=== PATIENT | female | born 1965 | race American Indian/Alaskan Native ===

== ENCOUNTER 2019-02-09 23:51 | Emergency (ER) | payer OTHER ==
[2019-02-10] MEDS ORDERED: ANTIVERT PO ONE (02:27)
[2019-02-10] MEDS ORDERED: ZOFRAN ODT PO ONE (02:27)
[2019-02-10 02:39] LABS: BUN/Creatinine Ratio 14; Blood Urea Nitrogen 15 mg/dL (7-17); Calcium 9.3 mg/dL (8.4-10.2); Hemolysis Index 8
[2019-02-10 02:51] LABS: Basophils % (Auto) 0.3 % (0.0-1.8); Eosinophils # (Auto) 0.1 K/mm3 (0.0-0.4); Hematocrit 40.4 % (30.3-42.9); Hemoglobin 12.8 gm/dl (10.1-14.3); Lymphocytes # (Auto) 1.7 K/mm3 (1.2-5.4); Lymphocytes % (Auto) 38.5 % (13.4-35.0); Mean Corpuscular HGB Conc 32 % (30-34); Mean Corpuscular Volume 70 fl (79-97); Monocytes # (Auto) 0.4 K/mm3 (0.0-0.8); Monocytes % (Auto) 8.6 % (0.0-7.3); Platelet Count 230 K/mm3 (140-440); Red Blood Count 5.73 M/mm3 (3.65-5.03); Red Cell Distribution Width 16.3 % (13.2-15.2)
--- NOTE | 2019-02-10 04:31 | Emergency Department Report ---
ED Dizziness HPI - General Chief Complaint: Dizziness Stated Complaint: HIGH BP Time Seen by Provider: 02/10/19 02:19 Source: patient, EMS Mode of arrival: Stretcher Limitations: No Limitations - History of Present Illness Initial Comments: 53-year-old female with a past medical history reveals CVA in 2017, hypertension, and vertigo presents complaining of vertigo since yesterday. Patient describes a spinning sensation with associated nausea. No vomiting reported. Patient states she had a stroke in 2017 and vertigo was her only presenting symptom. Since that stroke she has had intermittent vertigo when she is "tired". Patient tried to nap after initial vertigo yesterday but then woke up later in the evening with worsening vertigo. She denies any focal deficits or blurred vision. Her left ear feels like there is water in it. Patient's v ertigo symptoms are intermittent, worse with head movement, and improved when remaining still. No pain reported. She has never taken any medication for vertigo in the past. Patient also states that her blood pressure was high at 204/111 despite taking her medications. She has been complaining with her lisinopril/hydrochlorothiazide 20/25 mg and Norvasc 5 mg daily. - Related Data Previous Rx's Medication Instructions Recorded Last Taken Type Meclizine [Antivert] 25 mg PO TID PRN #30 tablet 02/10/19 Unknown Rx Ondansetron [Zofran Odt] 4 mg PO Q8HR PRN #20 tab.rapdis 02/10/19 Unknown Rx Allergies Allergy/AdvReac Type Severity Reaction Status Date / Time Tetracyclines Allergy Anaphylaxis Verified 02/10/19 00:21 ED Review of Systems ROS: Stated complaint: HIGH BP Other details as noted in HPI Comment: All other systems reviewed and negative ED Past Medical Hx - Past Medical History Previous Medical History?: Yes Hx Hypertension: Yes Hx CVA: Yes (2016) Additional medical history: vertigo - Surgical History Past Surgical History?: Yes Additional Surgical History: tubal ligation 1989 - Social History Smoking Status: Never Smoker Substance Use Type: None - Medications Home Medications: Home Medications Medication Instructions Recorded Confirmed Last Taken Type Meclizine [Antivert] 25 mg PO TID PRN #30 tablet 02/10/19 Unknown Rx Ondansetron [Zofran Odt] 4 mg PO Q8HR PRN #20 tab.rapdis 02/10/19 Unknown Rx ED Physical Exam - General Limitations: No Limitations - Other Other exam information: General: No limitations, patient is alert in no acute distress Head exam: Atraumatic, normocephalic Eyes exam: Normal appearance, pupils equal reactive to light, extraocular movements intact, no nystagmus ENT: Moist mucous membrane, normal oropharynx, no otitis media or fluid noted in the eardrum. Neck exam: Normal inspection, full range of motion, no meningismus nontender Respiratory exam: Clear to auscultation bilateral, no wheezes, rales, crackles Cardiovascular: Normal rate and rhythm, normal heart sounds Abdomen: Soft, nondistended, and nontender, with normal bowel sounds, no rebound, or guarding Extremity: Full range of motion normal inspection no deformity Back: Normal Inspection, full range of motion, no tenderness Neurologic: Alert, oriented x3, cranial nerves intact, no motor or sensory deficit, xugvxr-ufht-rlrwmy function intact Psychiatric: normal affect, normal mood Skin: Warm, dry, intact ED Course Vital Signs 02/10/19 02/10/19 02/10/19 00:10 00:52 03:17 Temperature 98.3 F Pulse Rate 73 70 Respiratory 17 19 19 Rate Blood Pressure 162/87 146/92 [Left] O2 Sat by Pulse 98 98 98 Oximetry ED Medical Decision Making - Lab Data Result diagrams: 02/10/19 02:03 02/10/19 02:01 Lab Results 02/10/19 02/10/19 Range/Units 02:01 02:03 WBC 4.5 (4.5-11.0) K/mm3 RBC 5.73 H (3.65-5.03) M/mm3 Hgb 12.8 (10.1-14.3) gm/dl Hct 40.4 (30.3-42.9) % MCV 70 L (79-97) fl MCH 22 L (28-32) pg MCHC 32 (30-34) % RDW 16.3 H (13.2-15.2) % Plt Count 230 (140-440) K/mm3 Lymph % (Auto) 38.5 H (13.4-35.0) % Dunn % (Auto) 8.6 H (0.0-7.3) % Eos % (Auto) 3.0 (0.0-4.3) % Baso % (Auto) 0.3 (0.0-1.8) % Lymph # 1.7 (1.2-5.4) K/mm3 Dunn # 0.4 (0.0-0.8) K/mm3 Eos # 0.1 (0.0-0.4) K/mm3 Baso # 0.0 (0.0-0.1) K/mm3 Seg Neutrophils % 49.6 (40.0-70.0) % Seg Neutrophils # 2.3 (1.8-7.7) K/mm3 Sodium 138 (137-145) mmol/L Potassium 4.0 (3.6-5.0) mmol/L Chloride 96.9 L (98-107) mmol/L Carbon Dioxide 29 (22-30) mmol/L Anion Gap 16 mmol/L BUN 15 (7-17) mg/dL Creatinine 1.1 (0.7-1.2) mg/dL Estimated GFR > 60 ml/min BUN/Creatinine Ratio 14 % Glucose 176 H (65-100) mg/dL Calcium 9.3 (8.4-10.2) mg/dL Magnesium 2.00 (1.7-2.3) mg/dL - Medical Decision Making Patient treated with meclizine and Zofran with improvement in symptoms. Blood pressure remained in acceptable range without intervention. Patient be discharg ed to follow-up - Differential Diagnosis vertigo, CVA, electrolyte abnormality Critical Care Time: No Critical care attestation.: If time is entered above; I have spent that time in minutes in the direct care of this critically ill patient, excluding procedure time. ED Disposition Clinical Impression: Vertigo Disposition: DC-01 TO HOME OR SELFCARE Is pt being admited?: No Does the pt Need Aspirin: No Condition: Stable Instructions: Vertigo (ED) Additional Instructions: Take the medication as prescribed. Follow up with your doctor or the clinic/doctor provided. Return if symptoms worsen as indicated by your disch arge instructions Prescriptions: Meclizine [Antivert] 25 mg PO TID PRN #30 tablet PRN Reason: Vertigo Ondansetron [Zofran Odt] 4 mg PO Q8HR PRN #20 tab.rapdis PRN Reason: Nausea And Vomiting Referrals: [facility] MD SURJIT [Primary Care Provider] - 3-5 Days TRUNG WEBB MD [Staff Physician] - 3-5 Days (ENT) Time of Disposition: 04:34
[2019-02-10 05:42] VITALS: BP 142/86
== END 2019-02-10 05:41 | disposition home or self-care (01) ==
LOC: ED 23:51
DX: R42 Dizziness and giddiness (principal); R11.0 Nausea; I10 Essential (primary) hypertension; Z98.51 Tubal ligation status; Z86.73 Personal history of transient ischemic attack (TIA), and cerebral infarction without residual deficits; Z88.1 Allergy status to other antibiotic agents
CPT/HCPCS: 36415; 80048; 83735; 85025; Q0162

== ENCOUNTER 2020-03-30 17:59 | Emergency (ER) | payer OTHER ==
[2020-03-30] MEDS ORDERED: ACETAMINOPHEN 500 MG TAB PO ONE (18:46)
--- NOTE | 2020-03-30 18:47 | Event Note ---
ED Screening Note Date of service: 03/30/20 Time: 18:45 ED Screening Note: 55-year-old female presents to the emergency room for shortness of breath cough low-grade fever body aches mild nausea no vomiting. Decreased appetite. This initial assessment/diagnostic orders/clinical plan/treatment(s) is/are subject to change based on patients health status, clinical progression and re- assessment by fellow clinical providers in the ED. Further treatment and workup at subsequent clinical providers discretion. Patient/guardian urged not to elope from the ED as their condition may be serious if not clinically assessed and managed. Initial orders include:
--- NOTE | 2020-03-30 19:27 | XRay Report ---
CHEST 2 VIEWS INDICATION / CLINICAL INFORMATION: sob,cough and rales. COMPARISON: None available. FINDINGS: SUPPORT DEVICES: None. HEART / MEDIASTINUM: No significant abnormality. LUNGS / PLEURA: There is hazy parenchymal opacification in the right lobe. There is no pleural effusi on. No pneumothorax. ADDITIONAL FINDINGS: No significant additional findings. IMPRESSION: 1. Hazy right upper lobe parenchymal opacification concerning for developing pneumonia. Signer Name: Zoltan Villalta MD Signed: 03/30/2020 7:22 PM Workstation Name: [id number]
[2020-03-30 19:34] LABS: Basophils % (Auto) 0.3 % (0.0-1.8); Eosinophils % (Auto) 0.6 % (0.0-4.3); Hematocrit 40.3 % (30.3-42.9); Hemoglobin 12.6 gm/dl (10.1-14.3); Lymphocytes # (Auto) 1.4 K/mm3 (1.2-5.4); Lymphocytes % (Auto) 19.9 % (13.4-35.0); Mean Corpuscular HGB Conc 31 % (30-34); Mean Corpuscular Volume 71 fl (79-97); Monocytes # (Auto) 0.7 K/mm3 (0.0-0.8); Monocytes % (Auto) 10.5 % (0.0-7.3); Platelet Count 265 K/mm3 (140-440); Red Blood Count 5.71 M/mm3 (3.65-5.03); Red Cell Distribution Width 16.2 % (13.2-15.2)
[2020-03-30] MEDS ORDERED: LIDOCAINE-MPF (1%) 10 MG/1 ML VIAL 5 ML INFILTRATI ONE (19:56)
[2020-03-30] MEDS ORDERED: AZITHROMYCIN 250 MG TAB PO ONE (19:56)
[2020-03-30] MEDS ORDERED: dexAMETHasone 20 MG/5 ML VIAL IM ONE (19:56)
[2020-03-30 20:01] LABS: Albumin 4.2 g/dL (3.9-5); Calcium 9.1 mg/dL (8.4-10.2)
--- NOTE | 2020-03-30 20:54 | Emergency Department Report ---
- General Chief Complaint: Upper Respiratory Infection Stated Complaint: F/CHILLS/BODYACHE/NASTY TASTE/WEAKNESS Source: patient Mode of arrival: Ambulatory Limitations: No Limitations - History of Present Illness Initial Comments: Patient is a 55-year-old -Portuguese female with a history of hypertension, qsi-ujqrtuw-zfjkdcccz diabetes, CVA and vertigo who presents to the ED with complaint of acute onset persistent nasal and sinus congestion, frontal sinus pressure and headache, persistent dry cough with pleuritic chest wall pain for the last 6 days. Patient also complains of intermittent fever and chills stating that the fever has been low-grade up to 101 F at some point. Patient also states that she has been taking eave-bcd-nvjdqcv antipyretics Tylenol as needed for fever. Patient states that in the last 2 days her fevers been persistent and higher with worsening symptoms. Patient states that no one else at home has had similar symptoms. Patient denies diarrhea, sore throat, nausea, vomiting, chest pain, shortness of breath, abdominal pain, dysuria, urinary frequency and urgency, change in vision, syncope or back pain and vaginal bleeding. MD Complaint: cough, rhinorrhea, nasal congestion, sinus pain -: Sudden, days(s) (6) Severity: severe Severity scale (0 -10): 7 Quality: dull, aching Consistency: constant Improves With: nothing Worsens With: nothing Associated Symptoms: denies other symptoms, fever, chills, myalgias, headache, rhinorrhea, nasal congestion, cough. denies: diaphoresis, sore throat, stiff neck, chest pain, shortness of breath, abdominal pain, nausea, vomiting, diarrhea, dysuria, rash, right sweats, weight loss, hoarseness, ear pain Treatments Prior to Arrival: Acetaminophen - Related Data Previous Rx's Medication Instructions Recorded Last Taken Type Meclizine [Antivert] 25 mg PO TID PRN #30 tablet 02/10/19 Unknown Rx Ondansetron [Zofran Odt] 4 mg PO Q8HR PRN #20 tab.rapdis 02/10/19 Unknown Rx Benzonatate [Tessalon Perles] 100 mg PO Q8HR #30 capsule 03/30/20 Unknown Rx Cetirizine HCl [ZyrTEC 10mg cap] 10 mg PO DAILY #30 capsule 03/30/20 Unknown Rx Ibuprofen [Motrin] 600 mg PO Q8H PRN #24 tablet 03/30/20 Unknown Rx levoFLOXacin [Levaquin] 750 mg PO QDAY #7 tablet 03/30/20 Unknown Rx methylPREDNISolone [Medrol 4MG 4 mg PO DAILY #21 tab.ds.pk 03/30/20 Unknown Rx DOSEPAK (21 tabs)] Allergies Allergy/AdvReac Type Severity Reaction Status Date / Time Tetracyclines Allergy Anaphylaxis Verified 02/10/19 00:21 ED Review of Systems ROS: Stated complaint: F/CHILLS/BODYACHE/NASTY TASTE/WEAKNESS Other details as noted in HPI Constitutional: chills, fever, malaise Eyes: denies: eye pain, eye discharge, vision change ENT: congestion. denies: ear pain, throat pain Respiratory: cough. denies: shortness of breath, wheezing Cardiovascular: denies: chest pain, palpitations Endocrine: no symptoms reported Gastrointestinal: denies: abdominal pain, nausea, diarrhea Genitourinary: denies: urgency, dysuria, discharge Musculoskeletal: arthralgia, myalgia. denies: back pain, joint swelling Skin: denies: rash, lesions Neurological: headache. denies: weakness, paresthesias Psychiatric: denies: anxiety, depression Hematological/Lymphatic: denies: easy bleeding, easy bruising ED Past Medical Hx - Past Medical History Previous Medical History?: Yes Hx Hypertension: Yes Hx CVA: Yes (2017) Hx Diabetes: Yes Additional medical history: vertigo - Surgical History Past Surgical History?: Yes Additional Surgical History: tubal ligation 1989 - Social History Smoking Status: Never Smoker Substance Use Type: Alcohol - Medications Home Medications: Home Medications Medication Instructions Recorded Confirmed Last Taken Type Meclizine [Antivert] 25 mg PO TID PRN #30 tablet 02/10/19 Unknown Rx Ondansetron [Zofran Odt] 4 mg PO Q8HR PRN #20 tab.rapdis 02/10/19 Unknown Rx Benzonatate [Tessalon Perles] 100 mg PO Q8HR #30 capsule 03/30/20 Unknown Rx Cetirizine HCl [ZyrTEC 10mg cap] 10 mg PO DAILY #30 capsule 03/30/20 Unknown Rx Ibuprofen [Motrin] 600 mg PO Q8H PRN #24 tablet 03/30/20 Unknown Rx levoFLOXacin [Levaquin] 750 mg PO QDAY #7 tablet 03/30/20 Unknown Rx methylPREDNISolone [Medrol 4MG 4 mg PO DAILY #21 tab.ds.pk 03/30/20 Unknown Rx DOSEPAK (21 tabs)] ED Physical Exam - General Limitations: No Limitations General appearance: alert, in no apparent distress - Head Head exam: Present: atraumatic, normocephalic, normal inspection - Eye Eye exam: Present: normal appearance, PERRL, EOMI Pupils: Present: normal accommodation - ENT ENT exam: Present: normal orophraynx, mucous membranes moist, TM's normal bilaterally, normal external ear exam, other (Grossly congested nasal passages; palpable frontal and maxillary sinus tenderness) - Neck Neck exam: Present: normal inspection, full ROM - Respiratory Respiratory exam: Present: normal lung sounds bilaterally. Absent: respiratory distress, wheezes, rales, rhonchi, chest wall tenderness, decreased breath sounds, prolonged expiratory - Cardiovascular Cardiovascular Exam: Present: normal rhythm, tachycardia, normal heart sounds. Absent: systolic murmur, diastolic murmur, rubs, gallop - GI/Abdominal GI/Abdominal exam: Present: soft, normal bowel sounds. Absent: tenderness, guarding, rebound, hyperactive bowel sounds, hypoactive bowel sounds, organomegaly - Rectal Rectal exam: Present: deferred - Extremities Exam Extremities exam: Present: normal inspection, full ROM, normal capillary refill - Back Exam Back exam: Present: normal inspection, full ROM. Absent: tenderness, muscle spasm, paraspinal tenderness, vertebral tenderness - Neurological Exam Neurological exam: Present: alert, oriented X3, CN II-XII intact, normal gait, reflexes normal - Psychiatric Psychiatric exam: Present: normal affect, normal mood - Skin Skin exam: Present: warm, dry, intact, normal color. Absent: rash ED Course Vital Signs 03/30/20 03/30/20 18:10 21:09 Temperature 100.1 F H 100.3 F H Pulse Rate 110 H 98 H Respiratory 20 16 Rate Blood Pressure 188/90 Blood Pressure 138/94 [Left] O2 Sat by Pulse 98 95 Oximetry ED Medical Decision Making - Lab Data Result diagrams: 03/30/20 19:03 03/30/20 19:03 - Radiology Data Radiology results: report reviewed, image reviewed Findings [facility] [address] [place] [address] XRay Report Signed Patient: ROHIT LAFLEUR MR#: [id number] : 1965 Acct:[id number] Age/Sex: 55 / F ADM Date: 03/30/20 Loc: ED Attending Dr: Ordering Physician: YESENIA AGUIRRE Date of Service: 03/30/20 Procedure(s): XR chest routine 2V Accession Number(s): [id number] cc: YESENIA AGUIRRE Fluoro Time In Minutes: CHEST 2 VIEWS INDICATION / CLINICAL INFORMATION: sob,cough and rales. COMPARISON: None available. FINDINGS: SUPPORT DEVICES: None. HEART / MEDIASTINUM: No significant abnormality. LUNGS / PLEURA: There is hazy parenchymal opacification in the right lobe. There is no pleural effusion. No pneumothorax. ADDITIONAL FINDINGS: No significant additional findings. IMPRESSION: 1. Hazy right upper lobe parenchymal opacification concerning for developing pneumonia. Signer Name: Zoltan Villalta MD Signed: 03/30/2020 7:22 PM Workstation Name: [id number] Transcribed By: ELDER Dictated By: Zoltan Villalta MD Electronically Authenticated By: Zoltan Villalta MD Signed Date/Time: 03/30/201921 DD/ 21 TD/TT: - Medical Decision Making This is a 55-year-old -Portuguese female with a history of hypertension, tmk-hgkwtrw-vupohmkcg diabetes, CVA and vertigo who presents to the ED with com plaint of acute onset persistent nasal and sinus congestion, frontal sinus pressure and headache, persistent dry cough with pleuritic chest wall pain for the last 6 days. Patient also complains of intermittent fever and chills stating that the fever has been low-grade up to 101 F at some point. Patient also states that she has been taking fxau-mhz-nnrodck antipyretics Tylenol as needed for fever. Patient states that in the last 2 days her fevers been persistent and higher with worsening symptoms. Patient states that no one else at home has had similar symptoms. In the ED, patient is alert and oriented x3 and is not in distress but febrile and tachycardic in triage. Patient was treated for fever in the ED. lab test results were reviewed and are all nonactionable. Chest x-ray shows a hazy right upper lobe parenchymal opacification concerning for developing pneumonia. Patient was therefore treated in the ED with Rocephin 1 g intramuscular injection and azithromycin 500 mg p.o. x1. Other differential diagnoses were considered during this visit including pneumonia, sinusitis, URI, strep pharyngitis, COVID-19, coronary artery disease or PE. On reevaluation, patient fever resolved with medication as well as tachycardia. Patient was discharged home on antibiotics, antipyretic s, Medrol Dosepak, Tessalon Perles and Zyrtec. Patient was advised to follow-up with her primary care physician in 5 to 7 days for reevaluation. Patient was advised to return to the ED immediately if symptoms get worse. - Differential Diagnosis Pneumonia; Covid19; Sinusitis; URI; Strep pharyngitis; ACS; PE Critical care attestation.: If time is entered above; I have spent that time in minutes in the direct care of this critically ill patient, excluding procedure time. ED Disposition Clinical Impression: Acute upper respiratory infection, Acute non-recurrent maxillary sinusitis, Fever and chills Community acquired pneumonia Qualifiers: Laterality: right Lung location: upper lobe of lung Qualified Code(s): J18.9 - Pneumonia, unspecified organism Disposition: DC- TO HOME OR SELFCARE Is pt being admited?: No Does the pt Need Aspirin: No Condition: Stable Instructions: Upper Respiratory Infection (ED), Acute Bacterial Rhinosinusitis (ED), Community-acquired Pneumonia (ED), Bacterial Pneumonia (ED) Additional Instructions: Take medication with food, drink plenty of fluids and follow-up with your primary care physician in 7 to 10 days for reevaluation. Return to the ED immediately if symptoms get worse. Prescriptions: levoFLOXacin [Levaquin] 750 mg PO QDAY #7 tablet methylPREDNISolone [Medrol 4MG DOSEPAK (21 tabs)] 4 mg PO DAILY #21 tab.ds.pk Ibuprofen [Motrin] 600 mg PO Q8H PRN #24 tablet PRN Reason: Pain Benzonatate [Tessalon Perles] 100 mg PO Q8HR #30 capsule Cetirizine HCl [ZyrTEC 10mg cap] 10 mg PO DAILY #30 capsule Referrals: MADDISON CHAUDHARI MD [Staff Physician] - 3-5 Days Time of Disposition: 20:52 Print Language: MALAY
[2020-03-30 21:10] VITALS: BP 138/94
[2020-03-30] MEDS ORDERED: IBUPROFEN 600 MG TAB PO ONE ×2 (21:10→21:13)
== END 2020-03-30 21:20 | disposition home or self-care (01) ==
LOC: ED 17:59
DX: J01.00 Acute maxillary sinusitis, unspecified (principal); I10 Essential (primary) hypertension; E11.9 Type 2 diabetes mellitus without complications
CPT/HCPCS: 36415; 71046; 80053; 85025; 96372; 99283; J0696; J1100

== ENCOUNTER 2020-10-03 15:43 | Emergency (ER) | payer OTHER ==
[2020-10-03 17:30] VITALS: BP 156/106
--- NOTE | 2020-10-03 17:30 | Event Note ---
ED Screening Note Date of service: 10/03/20 Time: 17:29 ED Screening Note: Patient complains of loss of taste/smell, body aches, weakness, and intermittent\substernal chest pain x4 days States exposed to Covid at work History of diabetes Patient is diaphoretic in triage, however no fever noted This initial assessment/diagnostic orders/clinical plan/treatment(s) is/are subject to change based on patients health status, clinical progression and re- assessment by fellow clinical providers in the ED. Further treatment and workup at subsequent clinical providers discretion. Patient/guardian urged not to elope from the ED as their condition may be serious if not clinically assessed and managed. Initial orders include: Labs Chest x-ray POC glucose
[2020-10-03 17:56] LABS: Basophils % (Auto) 0.4 % (0.0-1.8); Eosinophils % (Auto) 0.1 % (0.0-4.3); Hematocrit 46.9 % (30.3-42.9); Lymphocytes # (Auto) 1.1 K/mm3 (1.2-5.4); Lymphocytes % (Auto) 23.1 % (13.4-35.0); Mean Corpuscular HGB Conc 32 % (30-34); Mean Corpuscular Volume 71 fl (79-97); Monocytes # (Auto) 0.5 K/mm3 (0.0-0.8); Monocytes % (Auto) 10.9 % (0.0-7.3); Platelet Count 194 K/mm3 (140-440); Red Blood Count 6.62 M/mm3 (3.65-5.03); Red Cell Distribution Width 16.4 % (13.2-15.2)
[2020-10-03 18:17] LABS: Alanine Aminotransferase 52 units/L (7-56); Albumin 3.6 g/dL (3.9-5); BUN/Creatinine Ratio 9; Blood Urea Nitrogen 11 mg/dL (7-17); Calcium 8.8 mg/dL (8.4-10.2); Hemolysis Index 9
--- NOTE | 2020-10-03 18:44 | XRay Report ---
CHEST 2 VIEWS INDICATION: chest pain. COMPARISON: Chest x-ray from 03/30/2020 FINDINGS: SUPPORT DEVICES: None. HEART: Within normal limits. LUNGS/PLEURA: Improved aeration in the lungs with less subtle patchy airspace disease noted, particul simran in the right lung. No pneumothorax. ADDITIONAL FINDINGS: None. IMPRESSION: 1. Improved exam. Signer Name: Zaire Arreaga MD Signed: 10/03/2020 6:40 PM Workstation Name: [id number]
--- NOTE | 2020-10-03 23:47 | Emergency Department Report ---
ED General Adult HPI - General Chief complaint: Fever Stated complaint: NO SMELL/TASTE/BODY ACHES/CHILLS PUI?: Yes Time Seen by Provider: 10/03/20 17:28 Source: patient, RN notes reviewed, old records reviewed Mode of arrival: Ambulatory Limitations: No Limitations - History of Present Illness Initial comments: The patient was evaluated in the emergency department for symptoms described in the history of present illness. He/she was evaluated in the context of the global COVID-19 pandemic, which necessitated consideration that the patient might be at risk for infection with the virus that causes COVID-19. Institutional protocols and algorithms that pertain to the evaluation of patients at risk for COVID-19 are in a state of rapid change based on information released by regulatory bodies including the CDC and federal and state organizations. These policies and algorithms were followed during the patient's care in the emergency department. Please note that these policies, procedures and recommendations changed on a rapid basis. During the entire history and physical examination, I had on complete personal protective equipment. The patient is a 55-year-old female with a history of hypertension, who presents to the ER with a complaint of body aches, myalgias, malaise, fatigue, dry cough, loss of taste and loss of smell. She believes she was exposed to COVID-19 last week at work. Today is day 5/6 of symptoms. She denies severe headache, but has a mild headache, no irritative or obstructive urinary symptoms, no abdominal pain, and a few episodes of nonbloody, nonbilious painless diarrhea. Symptoms constant. They worsen with physical exertion and decreased with rest. Positive relief with [id number] Tylenol at home. -: Gradual, days(s) Location: back, left, right, upper extremity, lower extremity Quality: aching Improves with: medication, rest Worsens with: movement - Related Data Previous Rx's Medication Instructions Recorded Last Taken Type Meclizine [Antivert] 25 mg PO TID PRN #30 tablet 02/10/19 Unknown Rx Ondansetron [Zofran Odt] 4 mg PO Q8HR PRN #20 tab.rapdis 02/10/19 Unknown Rx Benzonatate [Tessalon Perles] 100 mg PO Q8HR #30 capsule 03/30/20 Unknown Rx Cetirizine HCl [ZyrTEC 10mg cap] 10 mg PO DAILY #30 capsule 03/30/20 Unknown Rx Ibuprofen [Motrin] 600 mg PO Q8H PRN #24 tablet 03/30/20 Unknown Rx Acetaminophen [Non-Aspirin Extra 500 mg PO Q6HR PRN #30 tablet 10/04/20 Unknown Rx Strength] Albuterol Sulfate [Proair 90 mcg IH Q4HR PRN #2 aer.pow.ba 10/04/20 Unknown Rx Respiclick] Ibuprofen [Motrin] 600 mg PO Q8H PRN #30 tablet 10/04/20 Unknown Rx Allergies Allergy/AdvReac Type Severity Reaction Status Date / Time Tetracyclines Allergy Anaphylaxis Verified 02/10/19 00:21 ED Review of Systems ROS: Stated complaint: NO SMELL/TASTE/BODY ACHES/CHILLS Other details as noted in HPI Constitutional: chills, fever, malaise, weakness Eyes: denies: eye discharge ENT: congestion Respiratory: cough, shortness of breath Cardiovascular: denies: chest pain Gastrointestinal: diarrhea. denies: abdominal pain, nausea, vomiting Genitourinary: denies: dysuria Musculoskeletal: arthralgia, myalgia Neurological: weakness Hematological/Lymphatic: denies: easy bleeding ED Past Medical Hx - Past Medical History Previous Medical History?: Yes Hx Hypertension: Yes Hx CVA: Yes (2016) Hx Diabetes: Yes Additional medical history: vertigo - Surgical History Additional Surgical History: tubal ligation 1989 - Social History Smoking Status: Never Smoker Substance Use Type: None - Medications Home Medications: Home Medications Medication Instructions Recorded Confirmed Last Taken Type Meclizine [Antivert] 25 mg PO TID PRN #30 tablet 02/10/19 Unknown Rx Ondansetron [Zofran Odt] 4 mg PO Q8HR PRN #20 tab.rapdis 02/10/19 Unknown Rx Benzonatate [Tessalon Perles] 100 mg PO Q8HR #30 capsule 03/30/20 Unknown Rx Cetirizine HCl [ZyrTEC 10mg cap] 10 mg PO DAILY #30 capsule 03/30/20 Unknown Rx Ibuprofen [Motrin] 600 mg PO Q8H PRN #24 tablet 03/30/20 Unknown Rx Acetaminophen [Non-Aspirin Extra 500 mg PO Q6HR PRN #30 tablet 10/04/20 Unknown Rx Strength] Albuterol Sulfate [Proair 90 mcg IH Q4HR PRN #2 aer.pow.ba 10/04/20 Unknown Rx Respiclick] Ibuprofen [Motrin] 600 mg PO Q8H PRN #30 tablet 10/04/20 Unknown Rx ED Physical Exam - General Limitations: No Limitations General appearance: alert, in no apparent distress - Head Head exam: Present: atraumatic, normocephalic - Eye Eye exam: Present: normal appearance, EOMI. Absent: nystagmus - ENT ENT exam: Present: normal exam, normal orophraynx, mucous membranes moist, normal external ear exam - Neck Neck exam: Present: normal inspection, full ROM. Absent: tenderness, meningismus - Respiratory Respiratory exam: Present: normal lung sounds bilaterally. Absent: respiratory distress, wheezes, rales, rhonchi, stridor, decreased breath sounds - Cardiovascular Cardiovascular Exam: Present: regular rate, normal rhythm, normal heart sounds. Absent: bradycardia, tachycardia, irregular rhythm, systolic murmur, diastolic murmur, rubs, gallop - GI/Abdominal GI/Abdominal exam: Present: soft. Absent: distended, tenderness, guarding, rebound, rigid, pulsatile mass - Extremities Exam Extremities exam: Present: normal inspection, full ROM, other (2+ pulses noted in the bilateral upper and lower extremities. There is no palpable cord. negative Homans sign. Muscular compartments are soft. The pelvis is stable.). Absent: pedal edema, calf tenderness - Back Exam Back exam: Present: normal inspection, full ROM. Absent: tenderness, CVA tenderness (R), CVA tenderness (L), paraspinal tenderness, vertebral tenderness - Neurological Exam Neurological exam: Present: alert, oriented X3, normal gait, other (No facial droop. Tongue midline. Extraocular movements intact bilaterally. Facial sensation intact to light touch in V1, V2, V3 distribution bilaterally. 5 and a 5 strength in 4 extremities. Sensation intact to light touch in 4 extremities.). Absent: motor sensory deficit - Psychiatric Psychiatric exam: Present: normal affect, normal mood - Skin Skin exam: Present: warm, dry, intact, normal color. Absent: rash ED Course Vital Signs 10/03/20 10/03/20 10/03/20 17:28 23:49 23:51 Temperature 99.7 F H Pulse Rate 95 H 108 H Respiratory 18 20 Rate Blood Pressure 156/106 [Right] O2 Sat by Pulse 98 98 Oximetry ED Medical Decision Making - Lab Data Result diagrams: 10/03/20 17:35 10/03/20 17:35 Vital Signs 10/03/20 10/03/20 10/03/20 17:28 23:49 23:51 Temperature 99.7 F H Pulse Rate 95 H 108 H Respiratory 18 20 Rate Blood Pressure 156/106 [Right] O2 Sat by Pulse 98 98 Oximetry Temp Pulse Resp BP Pulse Ox 99.7 F H 108 H 20 156/106 98 10/03/20 23:49 10/03/20 23:51 10/03/20 23:51 10/03/20 17:28 10/03/20 23:51 Lab Results 10/03/20 10/03/20 10/03/20 Range/Units 17:33 17:35 17:35 WBC 4.9 (4.5-11.0) K/mm3 RBC 6.62 H (3.65-5.03) M/mm3 Hgb 15.0 H (10.1-14.3) gm/dl Hct 46.9 H (30.3-42.9) % MCV 71 L (79-97) fl MCH 23 L (28-32) pg MCHC 32 (30-34) % RDW 16.4 H (13.2-15.2) % Plt Count 194 (140-440) K/mm3 Lymph % (Auto) 23.1 (13.4-35.0) % Swisher % (Auto) 10.9 H (0.0-7.3) % Eos % (Auto) 0.1 (0.0-4.3) % Baso % (Auto) 0.4 (0.0-1.8) % Lymph # (Auto) 1.1 L (1.2-5.4) K/mm3 Swisher # (Auto) 0.5 (0.0-0.8) K/mm3 Eos # (Auto) 0.0 (0.0-0.4) K/mm3 Baso # (Auto) 0.0 (0.0-0.1) K/mm3 Seg Neutrophils % 65.5 (40.0-70.0) % Seg Neutrophils # 3.2 (1.8-7.7) K/mm3 Sodium 130 L (137-145) mmol/L Potassium 4.4 (3.6-5.0) mmol/L Chloride 95.0 L (98-107) mmol/L Carbon Dioxide 26 (22-30) mmol/L Anion Gap 13 mmol/L BUN 11 (7-17) mg/dL Creatinine 1.2 (0.6-1.2) mg/dL Estimated GFR 56 ml/min BUN/Creatinine Ratio 9 % Glucose 276 H (65-100) mg/dL POC Glucose 278 H (70-105) mg/dL Calcium 8.8 (8.4-10.2) mg/dL Total Bilirubin 0.30 (0.1-1.2) mg/dL AST 26 (5-40) units/L ALT 52 (7-56) units/L Alkaline Phosphatase 109 (35-129) units/L Troponin T < 0.010 (0.00-0.029) ng/mL Total Protein 7.1 (6.3-8.2) g/dL Albumin 3.6 L (3.9-5) g/dL Albumin/Globulin Ratio 1.0 % - Radiology Data Radiology results: report reviewed, image reviewed Print Report Referring Physician: REGULO LYNN Patient Name: ROHIT LAFLEUR Date of : 1965 Sex: Female Report Date: 2020-10-03 Report Status: Finalized Findings [address] [address] XRay Report Signed Patient: ROHIT LAFLEUR MR#: [id number] : [birth year] Acct:[id number] Age/Sex: 55 / F ADM Date: 10/03/20 Loc: ED Attending Dr: Ordering Physician: REGULO LYNN Date of Service: 10/03/20 Procedure(s): XR chest routine 2V Accession Number(s): [id number] cc: REGULO LYNN Fluoro Time In Minutes: CHEST 2 VIEWS INDICATION: chest pain. COMPARISON: Chest x-ray from 03/30/2020 FINDINGS: SUPPORT DEVICES: None. HEART: Within normal limits. LUNGS/PLEURA: Improved aeration in the lungs with less subtle patchy airspace disease noted, particularly in the right lung. No pneumothorax. ADDITIONAL FINDINGS: None. IMPRESSION: 1. Improved exam. Signer Name: Zaire Arreaga MD Signed: 10/03/2020 6:40 PM Workstation Name: [id number] Transcribed By: MJ Dictated By: Zaire Arreaga MD Electronically Authenticated By: Zaire Arreaga MD Signed Date/Time: 10/03/201839 DD/ 38 TD/TT: - Medical Decision Making Differential diagnosis, including but not limited to: COVID-19, viral syndrome Assessment and plan: 55-year-old female, who is afebrile, with low-grade temperature, with reassuring vital signs, resolved tachycardia on my examination, who presents during the COVID-19 pandemic, with a clinical syndrome that is suggestive of probable COVID-19. Laboratory studies were ordered prior to my personal evaluation of this patient. They still for the history and physical, especially resolved tachycardia, do not suspect myocarditis, pericarditis, or acute coronary syndrome. Furthermore, symptoms present for 4 to 5 days, therefore, acute myocardial infarction is excluded as per the [employer] clinical policy. In addition, the patient specifically denies chest pain to myself. In any event, troponin negative, and remainder of laboratory studies are fairly unremarkable. Do not clinically suspect acute pneumonia at this time, x-ray of the chest is reviewed and appreciated, patient saturating well on room air, and given trial of ambulation, and did not desaturate. Extensive discussion had with patient regarding natural history of suspected COVID-19. She is reliable to follow-up with her outpatient primary care doctor, and return if she clinically worsens. Critical care attestation.: If time is entered above; I have spent that time in minutes in the direct care of this critically ill patient, excluding procedure time. ED Disposition Clinical Impression: Suspected 2019 novel coronavirus infection Disposition: DC-01 TO HOME OR SELFCARE Is pt being admited?: No Does the pt Need Aspirin: No Condition: Good Instructions: COVID-19 Additional Instructions: As we discussed, the patient most likely has novel coronavirus/COVID. the symptoms of COVID will typically persist 10 to 14 days. There is no cure at this time for COVID. Please make certain to self isolate and self quarantine, follow-up with an outpatient primary care doctor within the next 3 to 5 days, wash hands with soap and water frequently, thoroughly and often, patient may take the prescribed medications as needed and directed. Advance diet and drink plenty of fluids as tolerated. Avoid interactions with the very elderly, very young, and those with chronic medical conditions. Patient may take the prescribed pain medications as needed and directed for pain. Patient may take the breathing medication as needed for cough, wheezing and shortness of breath Return to the emergency room right away with new pain, worsening pain, migration of pain, projectile vomiting, change in mental status, confusion, inability to tolerate liquid feeds, new, worsened or different symptoms not present on the initial emergency room evaluation. Referrals: ELE TRIPP JR, MD [Primary Care Provider] - 3-5 Days Forms: Work/School Release Form(ED)
[2020-10-04] MEDS ORDERED: ACETAMINOPHEN 500 MG TAB PO ONE (00:19)
== END 2020-10-04 00:45 | disposition home or self-care (01) ==
LOC: ED 15:43
DX: R53.83 Other fatigue (principal); R05 Cough; R43.8 Other disturbances of smell and taste; Z20.828 Contact with and (suspected) exposure to other viral communicable diseases; I10 Essential (primary) hypertension; E11.9 Type 2 diabetes mellitus without complications; Z98.51 Tubal ligation status; Z79.899 Other long term (current) drug therapy; Z88.8 Allergy status to other drugs, medicaments and biological substances
CPT/HCPCS: 36415; 71046; 80053; 82550; 82962; 84484; 85025